=== PATIENT | female | born 1990 | race Two or more races ===

== ENCOUNTER 2020-08-08 02:15 | Inpatient (IN) | payer OTHER ==
--- NOTE | 2020-08-08 02:48 | NUR ---
0240-PT SWABBED FOR COVID19, FULL PPE DONNED, SAMPLE SENT TO [facility].
--- NOTE | 2020-08-08 10:54 | PR ---
[facility] [address] [facility] [place], [place] [address] Signed Progress Notes IP Datetime Report Generated by CPN: 08/08/2020 10:54 PROGRESS NOTES: [id number] Impression: Normal Progression of Labor Procedures: Intrauterine Pressure Catheter; Scalp Electrode Plan: Continue Present Management VITAL SIGNS: [id number] Vital Signs: Reviewed; Within Normal Limits EXAM: [id number] Dilatation: 4.0 Effacement: 75 Station: -2 Contractions: q 3 min, mild MEMBRANES: [id number] Amniotic Fluid Color: Meconium, Light Comments: Progressing. Will place IUPC and FSE to evaluate contractions and FHTs. I suspect the contractions are not quite adequate with frequency and possibly strength. FHTs are reassuring overall but will continue close observation. FETUS A: [id number] FHR Baseline: 150 Variability: Moderate 6-25bpm Accelerations: 15X15 Decelerations: None FHR Category: Category I Presentation: Vertex Comments on Fetus A: No evidence of metabolic acidosis FETUS B: [id number] Signing Physician: Alexa Ramey MD Copies: ~ *Electronically Signed* 08/08/20 1054 ALEXA RAMEY MD PATIENT NAME: ASHLYN LOCKETT PROGRESS NOTE DATE OF : [birth year] PHYSICIAN: ALEXA RAMEY MD RPT #: [id number] REPORT IS CONFIDENTIAL AND NOT TO BE RELEASED WITHOUT AUTHORIZATION
--- NOTE | 2020-08-08 12:01 | PR ---
[facility] [address] [facility] [place], [place] [address] Signed Progress Notes IP Datetime Report Generated by CPN: 08/08/2020 12:01 PROGRESS NOTES: [id number] Impression: Normal Progression of Labor Procedures: Sterile Vag Exam Plan: Continue Present Management VITAL SIGNS: [id number] Vital Signs: Reviewed; Within Normal Limits EXAM: [id number] Dilatation: 8.0 Effacement: 90 Station: -1 Contractions: q 3 min, mild MEMBRANES: [id number] Amniotic Fluid Color: Meconium, Light Comments: Progressing well. status overall reassuring at this time. FETUS A: [id number] FHR Baseline: 150 Variability: Moderate 6-25bpm Accelerations: 15X15 Decelerations: None FHR Category: Category I Presentation: Vertex Comments on Fetus A: No evidence of metabolic acidosis FETUS B: [id number] Signing Physician: Alexa Ramey MD Copies: ~ *Electronically Signed* 08/08/20 1201 ALEXA RAMEY MD PATIENT NAME: ASHLYN LOCKETT PROGRESS NOTE DATE OF : [birth year] PHYSICIAN: ALEXA RAMEY MD RPT #: [id number] REPORT IS CONFIDENTIAL AND NOT TO BE RELEASED WITHOUT AUTHORIZATION
[2020-08-08] MEDS ORDERED: PRENATAL VITAM1 EACH PO (19:31)
[2020-08-08] MEDS ORDERED: IRON240 MG PO (19:32)
--- NOTE | 2020-08-09 08:46 | PR ---
[facility] [address] [facility] [place], [place] [address] Signed PP Progress Notes Datetime Report Generated by CPN: 08/09/2020 08:46 SUBJECTIVE: [id number] Pain: Within Normal Limits Vital Signs: [id number] Vital Signs: Reviewed; Within Normal Limits EXAM: Ongoing Cardiovascular: Not Done Respiratory: Not Done Abdomen/Uterus: Abnormal Lochia: Normal Vulva/Perineum: Not Done Breasts: Not Done CVA Tenderness: Not Done Extremities: Normal Incision: Not Applicable Progress: Abnormal Exam Comments: Fundus firm, NT, slightly irregular @ U. H/H 12,2/37.1, WBC 11.1, plat 149k IMPRESSION/PLAN/PROCEDURES: [id number] Impression: Normal Progression Plan: Discharge Procedures: None Progress Notes: Doing well. She is ready for D/C. Signing Physician: Alexa Ramey MD Copies: ~ *Electronically Signed* 08/09/20 0846 ALEXA RAMEY MD PATIENT NAME: ASHLYN LOCKETT PROGRESS NOTE DATE OF : [birth year] PHYSICIAN: ALEXA RAMEY MD RPT #: [id number] REPORT IS CONFIDENTIAL AND NOT TO BE RELEASED WITHOUT AUTHORIZATION
== END 2020-08-09 15:15 | disposition home or self-care (01) | DRG 807 ==
LOC: FBCO 02:15 → FBC 02:16
PROVIDERS: ADMIT Obstetrics & Gynecology; ATTEND Obstetrics & Gynecology
PROC: 10E0XZZ Delivery of Products of Conception, External Approach (ICD-10-PCS; principal; 2020-08-08)
PROC: 0KQM0ZZ Repair Perineum Muscle, Open Approach (ICD-10-PCS; 2020-08-08)
PROC: 10H07YZ Insertion of Other Device into Products of Conception, Via Natural or Artificial Opening (ICD-10-PCS; 2020-08-08)
PROC: 00HU33Z Insertion of Infusion Device into Spinal Canal, Percutaneous Approach (ICD-10-PCS; 2020-08-08)
PROC: 3E0R3BZ Introduction of Anesthetic Agent into Spinal Canal, Percutaneous Approach (ICD-10-PCS; 2020-08-08)
DX: O99.214 Obesity complicating childbirth (principal); Z37.0 Single live birth; E66.9 Obesity, unspecified; Z3A.39 39 weeks gestation of pregnancy; O42.92 Full-term premature rupture of membranes, unspecified as to length of time between rupture and onset of labor; O70.1 Second degree perineal laceration during delivery; O77.0 Labor and delivery complicated by meconium in amniotic fluid; O34.13 Maternal care for benign tumor of corpus uteri, third trimester; D25.1 Intramural leiomyoma of uterus; Z87.440 Personal history of urinary (tract) infections; Z88.0 Allergy status to penicillin; Z86.19 Personal history of other infectious and parasitic diseases
CPT/HCPCS: 36415; 85027; A9270; C9803; J2590; J2795; J3010; J7121; U0003

== ENCOUNTER 2022-11-09 06:25 | Emergency (ER) | payer OTHER ==
[~2022-11-09] VITALS: Ht 165.1 cm; Wt 71.6 kg
[~2022-11-09 06:25] MED LIST: IRON240 MG PO; PRENATAL VITAM1 EACH PO
[2022-11-09] MEDS ORDERED: VITAMIN D21250 MCG PO (06:36)
[2022-11-09] MEDS ORDERED: REGLAN10 MG PO (09:37)
[2022-11-09] MEDS ORDERED: OMEPRAZOLE20 MG PO (09:37)
== END 2022-11-09 09:59 | disposition home or self-care (01) ==
LOC: ED 06:25
DX: R10.32 Left lower quadrant pain (principal); Z88.0 Allergy status to penicillin; Z79.899 Other long term (current) drug therapy
CPT/HCPCS: 36415; 74177; 80053; 81001; 83036; 83690; 84703; 85025; 87502; 96375; 99284-25; J2270; J2405; J2765; J7121; Q9967; U0003

== ENCOUNTER 2023-10-27 06:55 | Day surgery (SDC) | payer OTHER ==
[2023-10-18 15:01] VITALS: BP 109/76
[~2023-10-27] VITALS: Ht 165.1 cm; Wt 68.2 kg
[~2023-10-27 06:55] MED LIST changes: +LACTATED RINGER'S 1,000 ML IV SCH; +OMEPRAZOLE20 MG PO; +REGLAN10 MG PO; +VITAMIN D21250 MCG PO
[2023-10-27] MEDS ORDERED: IBLOOD GLUCOSE TEST STRIP 1 EA TEST VI PRN ×2 (07:00→10:30)
[2023-10-27] MEDS ORDERED: LIDOCAINE HCL 1% 5 ML SDV INJ ONE (07:00)
[2023-10-27] MEDS ORDERED: HEParin SOD (PORCINE) 5,000 UNIT/0.5 ML SYR SUB-Q SCH ×2 (07:00→21:00)
[2023-10-27] MEDS ORDERED: CEFAZOLIN SODIUM 2 GM/20 ML SYR IV SCH (07:00)
[2023-10-27] MEDS ORDERED: FAMOTIDINE 20 MG/ 2 ML VIAL IV SCH (07:00)
[2023-10-27] MEDS ORDERED: METOCLOPRAMIDE HCL 10 MG/2 ML SDV IV SCH (07:00)
[2023-10-27 07:15] VITALS: BP 110/71
[2023-10-27] MEDS ORDERED: BUPIVACAINE HCL 0.5% 30 ML VIAL ONE (07:57)
[2023-10-27] MEDS ORDERED: LACTATED RINGER'S 1,000 ML IV SCH ×2 (08:28→11:15)
[2023-10-27] MEDS ORDERED: bisacodyL 10 MG SUPP PR PRN (08:30)
[2023-10-27] MEDS ORDERED: OXYCODONE/APAP 5/325 TAB PO PRN (08:30)
[2023-10-27] MEDS ORDERED: OXYCODONE HCL 5 MG TAB PO PRN ×2 (08:30→11:15)
[2023-10-27] MEDS ORDERED: METOCLOPRAMIDE HCL 10 MG/2 ML SDV IV PRN ×2 (08:30→11:15)
[2023-10-27] MEDS ORDERED: PROMETHAZINE HCL 25 MG TAB PO PRN (08:30)
[2023-10-27] MEDS ORDERED: OXYTOCIN/0.9 % SODIUM CHLORIDE 500 ML IV SCH (08:30)
[2023-10-27] MEDS ORDERED: HYDROCODONE/ACETA 5/325 TAB PO PRN (08:30)
[2023-10-27] MEDS ORDERED: PROMETHAZINE HCL 25 MG SUPP PR PRN (08:30)
[2023-10-27] MEDS ORDERED: ondansetron HCL 4 MG/2 ML VIAL IV PRN ×3 (08:30→11:15)
[2023-10-27] MEDS ORDERED: PROCHLORPERAZINE EDISYLATE 10 MG/2 ML VIAL IV PRN ×3 (08:30→11:15)
[2023-10-27] MEDS ORDERED: KETOROLAC TROMETHAMINE 30 MG/ML VIAL IV SCH (08:45)
[2023-10-27] MEDS ORDERED: SENNOSIDES/DOCUSATE 1 EA TAB PO SCH (09:00)
[2023-10-27] MEDS ORDERED: MAGNESIUM SULFATE 1 GM/2 ML VIAL ONE (09:02)
[2023-10-27] MEDS ORDERED: SUGAMMADEX SODIUM 200 MG/2 ML ML ONE (09:02)
[2023-10-27] MEDS ORDERED: ROCURONIUM BROMIDE 50 MG/5 ML SYR ONE ×2 (09:02→10:34)
[2023-10-27] MEDS ORDERED: MIDAZOLAM HCL 2 MG/2 ML VIAL ONE (09:02)
[2023-10-27] MEDS ORDERED: LIDOCAINE HCL 2% 20 MG/ML VIAL INJ ONE (09:02)
[2023-10-27] MEDS ORDERED: LIDOCAINE HCL 2% 5 ML SDV ONE (09:02)
[2023-10-27] MEDS ORDERED: propofoL 200 MG/20 ML VIAL ONE (09:02)
[2023-10-27] MEDS ORDERED: KETAMINE in NS 50 MG/5 ML SYR ONE (09:02)
[2023-10-27] MEDS ORDERED: dexmedeTOMIDine HCl 200 MCG/2 ML VIAL ONE (09:02)
[2023-10-27] MEDS ORDERED: ACETAMINOPHEN 1,000 MG/100 ML VIAL ONE (09:02)
[2023-10-27] MEDS ORDERED: ondansetron HCL 4 MG/2 ML VIAL ONE (09:02)
[2023-10-27] MEDS ORDERED: DEXAMETHASONE SOD PHOS 4 MG/ML VIAL ONE (09:02)
[2023-10-27] MEDS ORDERED: fentaNYL citrate 100 MCG/2 ML VIAL ONE (09:02)
[2023-10-27] MEDS ORDERED: KETOROLAC TROMETHAMINE 30 MG/ML VIAL ONE (09:13)
[2023-10-27] MEDS ORDERED: LACTATED RINGER'S 1,000 ML IV ONE (10:22)
[2023-10-27] MEDS ORDERED: ePHEDrine sulfate 50 MG/ML AMP ONE (10:25)
[2023-10-27] MEDS ORDERED: droPERidol 5 MG/2 ML VIAL IV PRN (10:30)
[2023-10-27] MEDS ORDERED: fentaNYL citrate 100 MCG/2 ML VIAL IV PRN (10:30)
[2023-10-27] MEDS ORDERED: NALOXONE HCL 0.4 MG SYR IV PRN (10:30)
[2023-10-27] MEDS ORDERED: HYDROmorphone HCL 1 MG/ML SYR IV PRN (10:30)
[2023-10-27] MEDS ORDERED: FLUORESCEIN SODIUM 500 MG/5 ML ML ONE (10:57)
[2023-10-27] MEDS ORDERED: SIMETHICONE 125 MG TABLET CHEWABLE PO SCH (11:00)
[2023-10-27] MEDS ORDERED: SIMETHICONE 125 MG TABLET CHEWABLE PO PRN (11:15)
[2023-10-27] MEDS ORDERED: MORPHINE SULFATE 10 MG/ML VIAL IV PRN (11:15)
[2023-10-27] MEDS ORDERED: MAGNESIUM HYDROXIDE/AL HYDROX 30 ML CUP PO PRN (11:15)
[2023-10-27] MEDS ORDERED: ondansetron HCL 4 MG TAB PO PRN (11:15)
[2023-10-27] MEDS ORDERED: FAMOTIDINE 20 MG TAB PO PRN (11:15)
--- NOTE | 2023-10-27 11:33 | NUR ---
10/27/23 1133 Murray,Susana Jaramillo 1121: PATIENT ARRIVED TO PACU WITH ORAL AIRWAY IN PLACE. BREATHING SPONTANEOUSLY.
[2023-10-27 12:32] VITALS: BP 118/7
--- NOTE | 2023-10-27 12:40 | NUR ---
1225 PT ARRIVED TO DAY SURGERY TX ROOM VIA STRECHER. REPORTS TAKEN FROM MANN ORELLANA. PT DROWSEY, PT AT A 5/10 TOLERABLE LEVEL OF PAIN. PT NAUSEATED, 2.5 COMPOZINE GIVEN BY REYNA DARNELL. PT VITALS TAKEN. BREATHING EQUAL AND UNLABORED. 1240 PT HAS CALL LIGHT WITHIN REACH. PT HAS GERARDO CATH IN PLACE. PT HAS PERSONAL ITEMS WITHIN REACH. PT HAS TO FURTHER QUESTIONS AT THIS TIME.
--- NOTE | 2023-10-27 12:52 | NUR ---
1245 PT GERARDO CATH REMOVED. 9 MLS REMOVED FROM CATHETER BALLOON. 300 OF YELLOW URINE IN GERARDO BAG. PT TOLERATED CATHETER REMOVAL WELL.
--- NOTE | 2023-10-27 13:02 | NUR ---
1300 PT STILL REPORTING NAUSEA, BUT HAS IMPROOVED SLIGHTLY. CALL LIGHT WITHIN REACH, PERSONAL ITEMS WITHIN REACH. PT HAS NO FURTHER QUESTIONS AT THIS TIME.
[2023-10-27 13:26] VITALS: BP 116/74
--- NOTE | 2023-10-27 13:47 | NUR ---
LE 1321 PATIENT PAIN IS A 5/10 AND STATES IT IS STARTING TO WORSEN. PATIENT ABLE TO DRINK AND EAT SOME JELLO. OXYCODONE GIVEN PER EMAR. LE 1325 PATIENT ALERT AND ORIENTED. BREATHING EQUAL AND UNLABORED. OXYGEN SATURATIONS ABOVE 90% ON ROOM AIR. PATIENT NAUSEOUS. PATIENT SURGICAL SITE DRESSING CLEAN, DRY AND INTACT. SCD'S ON. IVF INFUSING. CALL LIGHT WITHIN REACH NO FUTHER NEEDS. NO QUESTIONS AT THIS TIME. LE 1339 PATIENT GIVEN ZOFRAN. CALL LIGHT WITHIN REACH NO FUTHER NEEDS. NO QUESTIONS. AT THIS TIME.
[2023-10-27 14:46] VITALS: BP 108/65
--- NOTE | 2023-10-27 15:09 | NUR ---
1500 PT REPORTS FEELING LESS NAUSEOUS AFTER COMPIAZINE GIVEN. PT REQUESTS TO GET UP AND USE RESTROOM. PT WAS ABLE TO AMBULATE ON OWN. WHILE PT WAS ON TOILET USING BATHROOM, PT BECAME NAUSEATED AND VOMITED. IMMEDIALY AFTER VOMITING PT REPORTS "I FEEL MUCH BETTER NOW." 1510 PT BACK IN BED, WITH PERSONAL ITEMS WITHIN REACH, WATER AND SNACKS WITHIN REACH. PT HAS NO FURTHER REQUESTS AT THIS TIME AND REPORTS NO LONGER FEELING NAUSEOUS.
--- NOTE | 2023-10-27 15:26 | NUR ---
1525 PT AT BEDSIDE. DISCHARGE INFORMATION GONE OVER, PRESCRIPTION GIVEN TO PT SPOUSE. PT AND SPOUSE HAVE NO FURTHER QUESTIONS AT THIS TIME. PT REPORTS TOLERABLE 4/10 PAIN. PT REPORTS NO NAUSEA. PT ABLE TO TOLERATE PO CRACKERS AND WATER.
[2023-10-27] MEDS ORDERED: SCOPOLAMINE 1 MG/3 DAYS PATCH 1 EACH TDSY TD ONE (15:45)
[2023-10-27] MEDS ORDERED: MECLIZINE HCL 25 MG TAB PO ONE (15:45)
[2023-10-27 15:47] VITALS: BP 110/69
--- NOTE | 2023-10-27 15:49 | NUR ---
1545 [address] AND SPOKE WITH DR MURDOCK IN REGARDS TO PT NAUSEA. PT DRESSED AND WANTING TO GO HOME. PT BEEN ABLE TO TOLERATE PO CRACKERS AND FLUIDS BUT NAUSOUS WHEN MOVES. DR MURDOCK VERBALLY ORDERED 25 MG MECLIZINE PO ONCE, AND ONE SCOPOLAMINE PATCH ONCE TO BE GIVEN NOW.
--- NOTE | 2023-10-27 16:17 | NUR ---
1556 PT GIVEN TANSDERM-SCOPATCH AND MECLIZINE. PT REPORTS FEELING LESS NAUSEOUS AND REQUESTING TO GO HOME. 1600 IV DEACCESSED. PT DRESSED AND PT WENT TO GET CAR. 1615 PT DISCHARGED FROM DAY SURGERY VIA WHEELCHAIR AND TAKEN TO PT HUSBANDS CAR IN FRONT OF HOSPTIAL. PT ONCE IN CAR THEN BECAME NAUSEOUS AND VOMITED. THIS NURSE ASKED IF PT WOULD LIKE TO COME BACK TO ROOM TO RECOVER LONGER. PT STATED "I WANT TO GO HOME, AND REST." PT EDUCATED ON IF NAUSEA PERSISTS TO COME BACK TO THE ED OR CALL DR CHICAS OFFICE TOMORROW.
[2023-10-27] MEDS ORDERED: ENOXAPARIN SODIUM 40 MG/0.4 ML SYR SUB-Q SCH (17:00)
[2023-10-27] MEDS ORDERED: ACETAMINOPHEN 500 MG TAB PO SCH (17:00)
[2023-10-27] MEDS ORDERED: IBUPROFEN 800 MG TAB PO SCH (21:00)
[2023-10-28] MEDS ORDERED: IBUPROFEN 600 MG TAB PO SCH (02:00)
--- NOTE | 2023-10-29 12:27 | PATH ---
[facility] [address] [place], [place] [address] Signed SPECIMEN(S): A UTERUS, CERVIX, FALLOPIAN TUBES, FIBROID SPECIMEN SOURCE: A. UTERUS, CERVIX, FALLOPIAN TUBES, FIBROID CLINICAL HISTORY: Intramural uterine fibroids, menorrhagia. FINAL PATHOLOGIC DIAGNOSIS: Uterus, cervix, fallopian tubes and fibroid: - Morcellated hysterectomy. - Benign bilateral oviducts with focal acute inflammation approaching tubal abscess. - Secretory endometrium, negative for atypical features or evidence of malignancy. - Benign myometrial leiomyomas. - Benign endo- and ectocervix. JVR:clv MICROSCOPIC EXAMINATION: Histologic sections of all submitted blocks are examined by light microscopy. These findings, together with the gross examination, support the pathologic diagnosis. GROSS DESCRIPTION: The specimen, labeled and designated "Zacarias PhillipsBeronica" and designated on the requisition "fibroid, uterus, cervix, bilateral fallopian tubes," is received in formalin and consists of a morcellated uterus (340 grams, 18.5 x 13.7 x 5.2 cm in aggregate) with detached unoriented cervix (3.5 cm in length by 3.4 cm in diameter) with trejo-pink to red-brown slightly roughened ectocervical mucosa and slit-shaped os (1.5 x 0.2 cm). Also received are two detached undesignated fimbriated fallopian tube segments (5.2 cm in length and ranging in diameter from 0.7 to 1.4 cm, and 5.5 cm in length and ranging in diameter from 0.7 to 1.0 cm). Both fallopian tube segments have attached paratubal cyst that measure up to 0.7 cm in greatest dimension and contain clear serous fluid. One fallopian tube segment is arbitrarily inked blue and both segments are serially sectioned to reveal pink-trejo to red-brown soft cut surfaces. The cervix is sectioned to reveal a trejo-brown herringbone endocervical mucosa PATIENT NAME: ASHLYN LEONARD PATHOLOGY DATE OF : [birth year] REPORT #: [id number] PHYSICIAN: [facility] PCP: SHANNAN MUJICA PA-C REPORT IS CONFIDENTIAL AND NOT TO BE RELEASED WITHOUT AUTHORIZATION [facility] [address] [place], [place] [address] Signed (endocervical canal: 2.5 cm in length by 1.3 cm in diameter) with mucoid material filled cysts on the wall of the cervix that measure up to 1.2 cm in greatest dimension. The remainder of the specimen shows trejo smooth to distorted uterine serosa, pink-trejo to red-brown endometrial lining (up to 0.5 cm in thickness) pink-trejo trabeculated myometrium and multiple pieces of fragmented white-trejo whorled and nodular tissue. Telecom Engineer sections are submitted. Cassette Summary: (A1-A2) fallopian tubes (A3) cervix (A4) endomyometrium (A5-A8) nodular tissue AC (under the direct supervision of a pathologist) The Gross Description was prepared using a voice recognition system. The report was reviewed for accuracy; however, sound-alike word errors, addition and/or deletions may occur. If there is any question about this report, please contact Client Services. PERFORMING LABORATORY: Technical component was performed by [facility], [address] [place] [address] (CLIA# [id number]). Professional interpretation was performed by [facility], [address] [place] [address] Ave[address] [place] [address] (CLIA#: [id number]). Diagnostician: Franky Squires MD Pathologist Electronically Signed 10/29/2023 Copies: ~ PATIENT NAME: ASHLYN LEONARD PATHOLOGY DATE OF : [birth year] REPORT #: [id number] PHYSICIAN: [facility] PCP: SHANNAN MUJICA PA-C REPORT IS CONFIDENTIAL AND NOT TO BE RELEASED WITHOUT AUTHORIZATION
--- NOTE | 2023-11-04 08:22 | OR ---
[facility] [address] [place], [place] [address] Signed DATE OF OPERATION: 10/27/2023 SURGEON: Alexa Ramey MD SANITATION INSPECTOR: Dwayne Murray DO PREOPERATIVE DIAGNOSES: 1. Uterine fibroids. 2. Menorrhagia. POSTOPERATIVE DIAGNOSES: 1. Uterine fibroids. 2. Menorrhagia. PROCEDURES: 1. Total laparoscopic hysterectomy with bilateral salpingectomy. 2. Cystoscopy. ANESTHESIA: General ET. ESTIMATED BLOOD LOSS: 50 mL. DRAINS: Carlos catheter. INDICATIONS AND FINDINGS: The patient is a 33-year-old female with increasing size of fibroids with worsening menorrhagia and now desires treatment. At the time of surgery, her uterus was approximately 16 weeks' size with multiple fibroids. Her tubes and ovaries appeared normal. There was a small area of endometriosis on the right uterosacral ligament. DESCRIPTION OF PROCEDURE: The patient was prepped and draped in the dorsal lithotomy position. A weighted speculum was placed and the anterior lip of the cervix was visualized and grasped with a single-tooth tenaculum. The cavity sounded to 12 cm. The VCare cannula was then placed and the balloon inflated at the fundus. The tenaculum and speculum removed. The cup was fitted over the cervix and a locking cap fitted into place. Attention was then Electronically Signed By: ALEXA RAMEY MD 11/04/23 0822 PATIENT NAME: BALDERAS LOCKETTASHLYN GREEN OPERATIVE REPORT DATE OF : [birth year] REPORT #: [id number] PHYSICIAN: ALEXA RAMEY MD PCP: SHANNAN MUJICA PA-C REPORT IS CONFIDENTIAL AND NOT TO BE RELEASED WITHOUT AUTHORIZATION [facility] [address] [place], [place] [address] Signed directed above. The infraumbilical area was injected with 0.5% Marcaine plain. An incision was made with a knife, and each layer was serially elevated incised until the fascia was opened and identified and stay sutures of 0-Vicryl placed. The peritoneum was opened bluntly and a Mary cannula placed and the balloon inflated. It was tied into place. Placement of the scope confirmed proper positioning. A brief evaluation showed the planned procedure was appropriate. The secondary ports were then placed. These were placed just below the level of the umbilicus and far laterally. Each of these areas was transilluminated, injected with the Marcaine, incision made with a knife and the trocars placed under direct vision. The left-sided port was a 5 mm port and the right side was the Veress needle with the expanding port. Following this, the LigaSure [place] device was used to serially coagulate and divide the mesosalpinx on the patient's left side. The tube was amputated at the cornu and the specimen retrieved. The utero-ovarian pedicle was then coagulated multiple times and divided. The round ligament was also coagulated multiple times and divided. Following this, attention was directed to the right side, where the tube was removed in the same manner. Again, the uteroovarian pedicle was serially coagulated and divided as was the round ligament. The anterior leaf of the broad ligament was then incised allowing creation of a partial bladder flap. The peritoneum was taken down posteriorly as well. There were multiple vessels feeding the fibroids and these were serially coagulated and divided as well. Further dissection was done both posteriorly and anteriorly and the cup could easily be felt anteriorly. Attention was directed onto the left side again and the anterior leaf of the peritoneum was taken down completing the bladder flap anteriorly. The posterior leaf was taken down as well. The uterine vessels were then coagulated multiple times and divided as there were multiple vessels on the left as well. Further dissection was done both posteriorly and anteriorly for further dissection. The cup could be palpated both anteriorly and posteriorly. Following this, the [employer] device was used to separate the vaginal cuff from the specimen. This was began posteriorly and wrapped around to the patient's left and around anteriorly and again starting posteriorly and wrapped around on the patient's right. The specimen was then completely . The VCare cannula was removed from below and the vagina packed with a glove with a wet lap to allow the pneumoperitoneum to reaccumulate. Because of the size of the uterus, it was placed in the large bag and brought up to the umbilicus. The bag was opened and a small Jony was placed inside the bag at the umbilical incision. The specimen was brought up to the incision and was removed in multiple pieces. The specimen was fairly friable in multiple portions. The specimen was removed completely. An inspection of the bag after removal of the bag showed the bag to be completely intact. The Mary cannula was then replaced at the umbilical site and the balloon inflated. The pelvis was irrigated and evaluated. There was no evidence of any ongoing bleeding. The cuff itself was closed with the Endo Stitch, taking care to incorporate both the vaginal mucosa posteriorly and anteriorly. This was run from the patient's right uterosacral ligament to the left and back to the center. Some bleeding points on the bladder flap area were controlled with the LigaSure device. Electronically Signed By: ALEXA RAMEY MD 11/04/23 0822 PATIENT NAME: ANDREY LOCKETTASHLYN OPERATIVE REPORT DATE OF : [birth year] REPORT #: [id number] PHYSICIAN: ALEXA RAMEY MD PCP: SHANNAN MUJICA PA-C REPORT IS CONFIDENTIAL AND NOT TO BE RELEASED WITHOUT AUTHORIZATION [facility] [address] [place], [place] [address] Signed The pelvis was again irrigated, inspected, and good hemostasis was noted. The instruments removed from the abdomen after allowing as much CO2 as possible to escape. The fascial incision of the umbilicus was re-identified and closed with running suture of 0-Vicryl. The skin incisions were closed with subcuticular sutures of 3-0 Vicryl Rapide. Attention was directed down below and the pack removed from the vagina. The Carlos catheter was removed and cystoscopy was done using the 30-degree scope. She had received IV fluorescein. There was no evidence of any bladder injury. There was prompt spill of clear urine from each of the ureteral orifices very quickly. Following this, the bladder was drained and the Carlos catheter replaced. All sponge and needle counts were correct. She tolerated the procedure well and was taken to the recovery room in good condition. Alexa Ramey MD PJW/MODL /[id number] Copies: ~ Electronically Signed By: ALEXA RAMEY MD 11/04/23 0822 PATIENT NAME: ASHLYN LEONARD OPERATIVE REPORT DATE OF : [birth year] REPORT #: [id number] PHYSICIAN: ALEXA RAMEY MD PCP: SHANNAN MUJICA PA-C REPORT IS CONFIDENTIAL AND NOT TO BE RELEASED WITHOUT AUTHORIZATION
== END 2023-10-27 16:11 | disposition home or self-care (01) ==
LOC: DS 06:55 → OPS 06:55 → DS 08:30 → OPS 09:15 → DS 09:15 → OPS 16:11 → DS 11-24 07:30
PROVIDERS: ATTEND Obstetrics & Gynecology
PROC: 0UT74ZZ Resection of Bilateral Fallopian Tubes, Percutaneous Endoscopic Approach (ICD-10-PCS; 2023-10-27)
PROC: 0UT94ZZ Resection of Uterus, Percutaneous Endoscopic Approach (ICD-10-PCS; principal; 2023-10-27 08:30)
DX: D25.9 Leiomyoma of uterus, unspecified (principal); E55.9 Vitamin D deficiency, unspecified
CPT/HCPCS: 00840; A9270; J0131; J0690; J0780; J1100; J1644; J1885; J2001; J2250; J2405; J2704; J2765; J3010; J3475; J3490; J7121

== ENCOUNTER 2025-05-10 14:25 | Emergency (ER) | payer OTHER ==
[~2025-05-10] VITALS: Ht 165.1 cm; Wt 64.8 kg
[~2025-05-10 14:25] MED LIST changes: -LACTATED RINGER'S 1,000 ML IV SCH
[2025-05-10] MEDS ORDERED: BUTALB-ACETAMI1 EACH (14:49)
[2025-05-10] MEDS ORDERED: PROMETHAZINE12.5 M1 PO (14:49)
[2025-05-10 15:03] LABS: BASOPHILS 0.8 % (0.1-1.2); EOSINOPHILS 3.5 % (0.7-5.8); LYMPHOCYTES 21.5 % (19.3-51.7); MCH 31.3 PG (25.6-32.2); MCHC 35.4 g/dL (32.2-35.5); MCV 88.5 fL (79.4-94.8); MONOCYTES 5.8 % (4.7-12.5); NEUTROPHILS 68.0 % (34.0-71.1); RBC 4.18 M/uL (3.93-5.22)
[2025-05-10 15:17] LABS: ALT (SGPT) 22.0 U/L (14-59); AST (SGOT) 12.0 U/L (15-37); GLOMERULAR FILTRATION RATE,EST 58.0 mL/min (>60); PROTEIN, TOTAL 8.2 g/dL (6.4-8.2); UREA NITROGEN 22.0 mg/dL (7-18)
[2025-05-10] MEDS ORDERED: POTASSIUM CHLORIDE 20 MEQ/15 ML CUP PO ONE (16:00)
[2025-05-10] MEDS ORDERED: ACETAMINOPHEN 500 MG TAB PO ONE (16:30)
[2025-05-10] MEDS ORDERED: BUTALB-ACETAMI1 EACH PO (16:35)
[2025-05-10 16:54] VITALS: BP 119/89
--- NOTE | 2025-05-10 18:28 | EKG ---
[facility] [address] [facility] [place], [place] [address] Signed Normal sinus rhythm Left axis deviation T wave abnormality, consider anterior ischemia Abnormal ECG No previous ECGs available Confirmed by Lele Tsai DO ([id number]) on 05/10/2025 6:28:14 PM Electronically Signed By: LELE TSAI DO 05/10/25 1828 PATIENT NAME: ANDREY BARRYASHLYN GREEN Electrocardiogram DATE OF : [birth year] PHYSICIAN: LELE TSAI DO REPORT #: [id number] REPORT IS CONFIDENTIAL AND NOT TO BE RELEASED WITHOUT AUTHORIZATION
== END 2025-05-10 16:54 | disposition home or self-care (01) ==
LOC: ED 14:25
PROVIDERS: Emergency Medicine
DX: E87.6 Hypokalemia (principal); R51.9 Headache, unspecified; Z88.0 Allergy status to penicillin; Z88.8 Allergy status to other drugs, medicaments and biological substances; Z79.899 Other long term (current) drug therapy
CPT/HCPCS: 36415; 80053; 83735; 85025; 93005; 93010; 99285; A9270

== ENCOUNTER 2025-05-27 07:05 | Emergency (ER) | payer OTHER ==
[~2025-05-27] VITALS: Ht 165.1 cm; Wt 62.0 kg
[~2025-05-27 07:05] MED LIST changes: +BUTALB-ACETAMI1 EACH; +BUTALB-ACETAMI1 EACH PO; +PROMETHAZINE12.5 M1 PO
--- OUTSIDE RECORDS SUMMARY | 2025-05-27 07:07 | XMS ---
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 EKimberly VISIT COUNT (12 MO.) [address] [place] [address] TOTAL 2 NOTE: Visits indicate total known visits. ED/UCC VISIT TRACKING (12 MO.) 05/27/2025 07:06 [facility] [place] TYPE: Emergency COMPLAINT: - DIFFCULT BREATHING 05/10/2025 14:25 [facility] [place] TYPE: Emergency COMPLAINT: - WEAKNESS DIAGNOSES: - Allergy status to other drugs, medicaments and biological substances - Allergy status to penicillin - Headache, unspecified - Hypokalemia - Other mcc (current) drug therapy - Weakness INPATIENT VISIT TRACKING (12 MO.) No inpatient visits to display in this time frame [email or web address]
[2025-05-27] MEDS ORDERED: POTASSIUM CHLO20 ME2 PO (07:23)
[2025-05-27] MEDS ORDERED: PANTOPRAZOLE SODIUM 40 MG/10 ML VIAL IV ONE (07:30)
[2025-05-27] MEDS ORDERED: SODIUM CHLORIDE 0.9% 500 ML IV ONE (07:30)
[2025-05-27 07:36] LABS: BASOPHILS 0.6 % (0.1-1.2); EOSINOPHILS 3.2 % (0.7-5.8); LYMPHOCYTES 29.9 % (19.3-51.7); MCH 31.0 PG (25.6-32.2); MCHC 35.9 g/dL (32.2-35.5); MCV 86.2 fL (79.4-94.8); MONOCYTES 5.6 % (4.7-12.5); NEUTROPHILS 60.3 % (34.0-71.1); RBC 4.20 M/uL (3.93-5.22)
[2025-05-27 08:00] LABS: ALT (SGPT) 16.0 U/L (14-59); AST (SGOT) 13.0 U/L (15-37); GLOMERULAR FILTRATION RATE,EST 83.0 mL/min (>60); PROTEIN, TOTAL 8.1 g/dL (6.4-8.2); TSH, 3RD GENERATION 1.546 uIU/mL (0.358-3.740); UREA NITROGEN 14.0 mg/dL (7-18)
[2025-05-27] MEDS ORDERED: POTASSIUM CHLORIDE 10 MEQ TABCR PO ONE (08:15)
[2025-05-27] MEDS ORDERED: POTASSIUM CHLORIDE 10 MEQ/100 ML BAG IV SCH (08:15)
[2025-05-27] MEDS ORDERED: KLOR-CON 1010 MEQ PO (09:41)
[2025-05-27] MEDS ORDERED: ONDANSETRON HCL8 MG PO (09:41)
[2025-05-27 11:40] VITALS: BP 101/77
== END 2025-05-27 11:40 | disposition home or self-care (01) ==
LOC: ED 07:05
PROVIDERS: Emergency Medicine
DX: E87.6 Hypokalemia (principal); K29.70 Gastritis, unspecified, without bleeding; F32.A Depression, unspecified; Z88.0 Allergy status to penicillin; Z88.8 Allergy status to other drugs, medicaments and biological substances; Z79.899 Other long term (current) drug therapy
CPT/HCPCS: 36415; 71260; 74177; 80053; 82550; 83735; 84443; 84703; 85025; 85379; 96361; 96365; 96366; 96375; 99285-25; A9270; J2470; J3480; J7040; Q9967